=== PATIENT | male | born 1960 | race Caucasian/White ===

== ENCOUNTER → 2024-05-04 08:35 | Outpatient (REF) | payer OTHER, SELFPAY | LOC: RCS 08:35 | PROVIDERS: ATTENDING PHYSICIAN Internal Medicine | DX: I34.0 Nonrheumatic mitral (valve) insufficiency (principal); Z98.890 Other specified postprocedural states; I45.4 Nonspecific intraventricular block; I36.1 Nonrheumatic tricuspid (valve) insufficiency; G45.9 Transient cerebral ischemic attack, unspecified | CPT/HCPCS: 93306 ==

== ENCOUNTER → 2025-05-17 07:45 | Outpatient (REF) | payer BC, SELFPAY | LOC: RCS 07:45 | PROVIDERS: ATTENDING PHYSICIAN Internal Medicine; FAMILY PHYSICIAN Internal Medicine | DX: I34.0 Nonrheumatic mitral (valve) insufficiency (principal); I36.1 Nonrheumatic tricuspid (valve) insufficiency; I77.810 Thoracic aortic ectasia; Z98.890 Other specified postprocedural states | CPT/HCPCS: 93306 ==

== ENCOUNTER 2025-08-29 13:59 | Outpatient (RCR) | payer BC, SELFPAY | END 2025-08-29 23:59 | disposition home or self-care (01) | LOC: RST 13:59 | PROVIDERS: ATTENDING PHYSICIAN Psychiatry & Neurology Neurology; PRIMARYCARE PHYSICIAN Internal Medicine | DX: G30.0 Alzheimer's disease with early onset (principal); F02.A0 Dementia in other diseases classified elsewhere, mild, without behavioral disturbance, psychotic disturbance, mood disturbance, and anxiety; R41.841 Cognitive communication deficit; R41.89 Other symptoms and signs involving cognitive functions and awareness; R41.840 Attention and concentration deficit; Z73.6 Limitation of activities due to disability | CPT/HCPCS: 96125; 97129; 97130 ==

== ENCOUNTER 2025-09-16 11:10 | Outpatient (RCR) | payer BC, SELFPAY | END 2025-09-16 23:59 | disposition home or self-care (01) | LOC: RST 11:10 | PROVIDERS: ATTENDING PHYSICIAN Psychiatry & Neurology Neurology; PRIMARYCARE PHYSICIAN Internal Medicine | DX: G30.0 Alzheimer's disease with early onset (principal); F02.A0 Dementia in other diseases classified elsewhere, mild, without behavioral disturbance, psychotic disturbance, mood disturbance, and anxiety; R41.841 Cognitive communication deficit; R41.89 Other symptoms and signs involving cognitive functions and awareness; R41.840 Attention and concentration deficit; Z73.6 Limitation of activities due to disability | CPT/HCPCS: 97129; 97130 ==